=== PATIENT | female | born 1990 | race Caucasian/White ===

== ENCOUNTER → 2017-04-26 | Outpatient (REF) ==
[~2017-04-26] MED LIST: AZO-STANDARD95 MG PO; CRANBERRY FRUI405 MG PO; FLEXERIL5 MG PO; K-DUR 10 MEQ T10 MEQ PO; MULTIPLE VITAMI1 TA5 PO; NORCO 325 MG-51 TAB PO; PLAQUENIL 200M200 MG PO; SENOKOT S 50 MG1 TAB PO; TIROSINT50 MC1 PO; TIROSINT75 MC1 PO; VITAMIN D1000 IU PO
== END ==
LOC: ZLAB.WCH 08:47
DX: Z01.89 Encounter for other specified special examinations (principal)

== ENCOUNTER 2017-05-05 00:30 | Outpatient (CLI) | payer MEDICAID ==
[~2017-05-05] VITALS: Ht 170.2 cm; Wt 66.8 kg
[2017-05-05 01:00] VITALS: BP 108/68; PULSE 81; TEMP 98.4
[2017-05-05 01:07] VITALS: BP 108/68; PULSE 81; TEMP 98.4
[2017-05-05 01:30] VITALS: BP 99/62; PULSE 80
== END 2017-05-05 01:50 | disposition home or self-care (01) ==
LOC: LDRO 00:30
DX: O36.8130 Decreased fetal movements, third trimester, not applicable or unspecified (principal); Z3A.30 30 weeks gestation of pregnancy

== ENCOUNTER 2017-05-06 15:27 | Outpatient (CLI) | payer MEDICAID ==
[~2017-05-06] VITALS: Ht 170.2 cm; Wt 68.2 kg
[2017-05-06 15:47] VITALS: BP 109/75; PULSE 100; TEMP 98.7
[2017-05-06 16:45] VITALS: BP 111/64; PULSE 82
== END 2017-05-06 17:15 | disposition home or self-care (01) ==
LOC: LDRO 15:27 → LDR 15:30 → LDRO 17:15
DX: Z34.83 Encounter for supervision of other normal pregnancy, third trimester (principal); Z3A.31 31 weeks gestation of pregnancy
CPT/HCPCS: OP

== ENCOUNTER 2017-05-07 03:05 | Outpatient (CLI) | payer MEDICAID ==
[~2017-05-07] VITALS: Ht 170.2 cm; Wt 66.8 kg
[2017-05-07 03:20] VITALS: BP 112/71; PULSE 78; TEMP 98.1
[2017-05-07 03:42] VITALS: BP 112/71; PULSE 78; TEMP 98.1
[2017-05-07 03:50] VITALS: BP 107/71; PULSE 80
== END 2017-05-07 04:20 | disposition home or self-care (01) ==
LOC: LDRO 03:05
DX: O46.93 Antepartum hemorrhage, unspecified, third trimester (principal); Z3A.31 31 weeks gestation of pregnancy

== ENCOUNTER 2017-05-08 15:20 | Outpatient (CLI) | payer MEDICAID ==
[~2017-05-08] VITALS: Ht 170.2 cm; Wt 68.2 kg
[2017-05-08] VITALS (8 sets, daily range): BP systolic 92–113; BP diastolic 46–72; PULSE 72–134; TEMP 98.1–98.3
[2017-05-08 16:20] LABS: BASO % 0.2 % (0.0-2.0); EOS # 0.2 (0.0-0.7); EOS % 2.3 % (0-4.0); GRAN # 7.1 (1.4-6.5); GRAN % 80.9 % (42.2-75.2); LYMPH # 0.9 (1.2-3.4); LYMPH % 10.3 % (20.0-51.0); MEAN CELL VOLUME 88 fl (80.0-100.0); MEAN CORPUSCULAR HGB CONC 34 g/dl (33.0-37.0); MEAN PLATELET VOLUME 10.1 fl (7.4-10.4); MONO # 0.5 (0.1-0.6); MONO % 5.7 % (1.7-9.3); PLATELET COUNT 260 K/mm3 (130-400); RED BLOOD COUNT 3.54 M/mm3 (4.10-5.30); REDCELL DISTRIBUTION WIDTH-CV 12.4 % (11.5-14.5); WHITE BLOOD COUNT 8.7 K/mm3 (4.8-10.8)
[2017-05-08 16:21] LABS: HEMATOCRIT 31.2 % (37.0-47.0); HEMOGLOBIN 10.6 g/dl (12.5-16.0); MEAN CORPUSCULAR HEMOGLOBIN 30 pg (27.0-31.0)
[2017-05-08 16:26] LABS: ADJUSTED CALCIUM 9.1 mg/dL (8.4-10.2); ALBUMIN 3.6 gm/dL (3.5-5.0); BILIRUBIN,TOTAL 0.7 mg/dL (0.0-1.0); CALCIUM 8.8 mg/dL (8.4-10.2); CREATININE, serum 0.55 mg/dL (0.52-1.25); POTASSIUM 3.8 mmol/L (3.4-5.0); TOTAL PROTEIN 6.8 gm/dL (6.4-8.2)
[2017-05-08 16:49] LABS: PH 7 (5-8); SQUAMOUS EPITHELIAL 0-2 /hpf; URINE APPEARANCE Clear; URINE BACTERIA Rare /hpf; URINE BILIRUBIN Negative (NEGATIVE); URINE BLOOD 1+ (NEGATIVE); URINE COLOR Yellow; URINE GLUCOSE Negative (NEGATIVE); URINE KETONE 1+ (NEGATIVE); URINE RBC 0-2 /hpf; URINE UROBILINOGEN Negative (NEGATIVE)
[2017-05-08 20:50] LABS: CHLAMYDIA/TRACH by PCR Female NOT DETECTED; NEISSERIA GON by PCR Female NOT DETECTED
== END 2017-05-08 17:50 | disposition short-term general hospital (02) ==
LOC: LDRO 15:20 → LDR 15:45 → LDRO 17:50
PROVIDERS: Obstetrics & Gynecology
DX: O42.913 Preterm premature rupture of membranes, unspecified as to length of time between rupture and onset of labor, third trimester (principal); Z3A.31 31 weeks gestation of pregnancy
CPT/HCPCS: OP; J0290; J0702; J1364; J3475; J7120

== ENCOUNTER → 2018-09-19 | Outpatient (CLI) | payer OTHER ==
[2018-09-19 13:20] LABS: CREATININE, serum 0.67 mg/dL (0.52-1.25)
== END ==
LOC: COL.LAB 12:30
PROVIDERS: Psychiatry & Neurology Neurology
DX: R42 Dizziness and giddiness (principal); R51 Headache; R20.0 Anesthesia of skin